=== PATIENT | male | born 1965 | race Caucasian/White ===

== ENCOUNTER → 2017-03-25 | Outpatient (CLI) | payer OTHER ==
[2015-03-25 13:40] VITALS: BP 126/66
--- NOTE | 2017-03-25 15:04 | RAD ---
Indication: Chronic bilateral knee pain. Time of exam 1455 hours. 2 views of each knee were obtained. The knee compartments appear to be well maintained. The articular surfaces are smooth. No fracture or dislocation is seen. No knee joint effusion is identified. Impression: Unremarkable bilateral knee radiographs.
== END | disposition home or self-care (01) ==
LOC: DXRADRC 14:37
PROVIDERS: ATTEND Physician Assistant
DX: M23.8X2 Other internal derangements of left knee (principal); M23.8X1 Other internal derangements of right knee
CPT/HCPCS: 73560

== ENCOUNTER → 2018-05-24 | Outpatient (CLI) | payer OTHER ==
[2015-03-25 13:40] VITALS: BP 126/66
[2018-05-24 09:31] LABS: BASO % 0 % (0-3); EOS % 1 % (0-3); HEMATOCRIT 44.2 % (39.0-53.0); HEMOGLOBIN 15.4 g/dL (13.0-17.5); LYMPH # 3.6 x10^3/uL (1.0-4.8); LYMPH % 79 % (24-48); MEAN CORPUSCULAR HEMOGLOBIN 30 pg (25-35); MEAN CORPUSCULAR HGB CONC 35 g/dL (31-37); MEAN CORPUSCULAR VOLUME 86 fL (79-100); MONO # 0.4 x10^3/uL (0.0-1.1); MONO % 9 % (0-9); NEUT # 0.5 x10^3uL (1.8-7.7); NEUT % 12 % (31-73); PLATELET COUNT 184 x10^3/uL (140-400); RED BLOOD COUNT 5.15 x10^6/uL (4.30-5.70); RED CELL DISTRIBUTION WIDTH 12.9 % (11.5-14.5); WHITE BLOOD COUNT 4.6 x10^3/uL (4.0-11.0)
[2018-05-24 09:41] LABS: ALBUMIN 3.7 g/dL (3.4-5.0); ALBUMIN/GLOBULIN RATIO 1.1 (1.0-1.7); CALCIUM 8.7 mg/dL (8.5-10.1); GFR 79.1; POTASSIUM 3.8 mmol/L (3.5-5.1); TOTAL BILIRUBIN 1.5 mg/dL (0.2-1.0); TOTAL PROTEIN 7.2 g/dL (6.4-8.2)
[2018-05-24 10:37] LABS: % BASOS 1 % (0-3); % LYMPHS 78 % (24-48); % MONOS 9 % (0-10); % SEGS 11 % (35-66)
[2018-05-24 10:38] LABS: PLT ESTIMATE ADEQUATE (ADEQUATE)
[2018-05-24 10:42] LABS: % ATYL 1 % (0-0)
[2018-05-24 22:18] LABS: T3 TOTAL 158 ng/dL (71-180); TESTOSTERONE TOTAL 643 ng/dL (264-916)
[2018-05-25 02:07] LABS: HEMOGLOBIN A1C 5.5 % (4.8-5.6)
== END | disposition home or self-care (01) ==
LOC: LAB 08:26
PROVIDERS: ATTEND General Practice
DX: E55.9 Vitamin D deficiency, unspecified (principal); R68.82 Decreased libido; R53.83 Other fatigue; Z87.442 Personal history of urinary calculi
CPT/HCPCS: 36415; 80053; 82306; 83036; 84403; 84436; 84443; 84480; 85007; 85025

== ENCOUNTER → 2019-05-27 | Outpatient (CLI) | payer OTHER ==
[2015-03-25 13:40] VITALS: BP 126/66
--- NOTE | 2019-05-27 09:51 | RAD ---
KNEE LEFT 3V History: Left knee pain. No evidence of acute fracture. No aggressive bone destruction. No dislocation. Minimal degenerative spurring about the knee. No definite soft tissue abnormality. IMPRESSION: No acute radiographic finding. Electronically signed by: Valeriano Ren MD (05/27/2019 9:48 AM) [facility]
== END | disposition home or self-care (01) ==
LOC: PMG 08:26
PROVIDERS: ATTEND Registered Nurse
DX: M25.562 Pain in left knee (principal)
CPT/HCPCS: 73562

== ENCOUNTER → 2021-09-18 | Outpatient (CLI) | payer OTHER ==
[2015-03-25 13:40] VITALS: BP 126/66
--- NOTE | 2021-09-18 10:50 | RAD ---
EXAM: Left knee, 3 views. HISTORY: Pain. COMPARISON: 05/27/2019. FINDINGS: 3 views of the left knee are obtained. There is mild medial compartment joint space narrowi ng and spurring. There is no fracture, dislocation or subluxation. There is no joint effusion. There is a small significant joint loose body overlying the anterior joint space in the lateral projection. IMPRESSION: 1. Mild medial compartment predominant osteoarthritis of the left knee with possible small joint loos e body. 2. No acute osseous finding. Electronically signed by: Yue Choi MD (09/18/2021 10:48 AM) [id number]
== END ==
LOC: RAD 10:17
PROVIDERS: ATTEND Nurse Practitioner Family
DX: M17.12 Unilateral primary osteoarthritis, left knee (principal); M76.892 Other specified enthesopathies of left lower limb, excluding foot; M25.862 Other specified joint disorders, left knee
CPT/HCPCS: 73562